=== PATIENT | male | born 1965 | race Caucasian/White ===

== ENCOUNTER 2020-11-22 12:12 | Emergency (ER) | payer BC ==
[2020-11-22] MEDS ORDERED: Ondansetron 4 MG Tab.DIS PO ONE (13:49)
[2020-11-22] MEDS ORDERED: HYDROmorphone 1 MG/ML Syringe IM ONE (13:49)
--- NOTE | 2020-11-22 14:29 | CR ---
INDICATION: Left knee pain. Swelling. FINDINGS: Three views of the left knee were obtained. There is prepatellar soft swelling. There is a joint effusion. There is no acute fracture seen or dislocation. There spurs off the patella at the insertion of the quadriceps and patellar tendons. IMPRESSION: 1. No acute bone abnormality. 2. Joint effusion. 3. Prepatellar soft tissue swelling. Dictated by Mike Castaneda MD @ 11/22/2020 2:28:[address] Mike Castaneda @ Nov 22 2020 2:28PM
--- NOTE | 2020-11-22 14:51 | EDM.PDOC ---
ED HPI GENERAL MEDICAL PROBLEM - General Chief Complaint: Lower Extremity Injury/Pain Stated Complaint: L KNEE PAIN Time Seen by Provider: 11/22/20 13:35 Source of Information: Reports: Patient History Limitations: Reports: No Limitations - History of Present Illness INITIAL COMMENTS - FREE TEXT/NARRATIVE: HISTORY AND PHYSICAL: History of present illness: The patient is a 55-year-old male who presents to the emergency room after taking a step down and stating his left leg just went out from underneath him. The patient states that he is unable to move his knee or bear weight on his left leg. He states that happened about 2.5 hours ago. He has not taken anything for the pain nor has he used ice. The patient states that he has never had an injury like this and has not had arthritis in the knee. Patient denies any fever, chills, headache, change in vision, syncope or near syncope. Denies any chest pain, back pain, shortness of breath or cough. Denies any abdominal pain, nausea, vomiting, diarrhea, constipation or dysuria. Has not noted any blood in urine or stool. Patient has been eating and drinking appropriately. Review of systems: As per history of present illness and below otherwise all systems reviewed and negative. Past medical history: As per history of present illness and as reviewed below otherwise noncontributory. Surgical history: As per history of present illness and as reviewed below otherwise noncontributory. Social history: See social history for further information Family history: As per history of present illness and as reviewed below otherwise noncontributory. Physical exam: General: Well developed and well nourished. Alert and orientated x 3. Nontoxic in appearance and in no acute distress. Vital signs are stable and have been reviewed by me. Nursing notes were reviewed. HEENT: Atraumatic, normocephalic, pupils equal and reactive bilaterally, negative for conjunctival pallor or scleral icterus, mucous membranes moist, TMs normal bilaterally, throat clear, neck supple, nontender, trachea midline. No drooling or trismus noted. No meningeal signs. No hot potato voice noted. Lungs: Clear to auscultation bilaterally. No wheezes, rales, or rhonchi. Chest nontender. Normal work of breathing, no accessory muscles used. Heart: S1S2, regular rate and rhythm without overt murmur, gallops, or rubs. No JVD. No peripheral edema Abdomen: Soft, nondistended, nontender. Normoactive bowel sounds. Negative for masses or costovertebral tenderness. Skin: Intact, warm, dry. No lesions or rashes noted. Hematologic: No petechiae or purpra. Mucosa appropriate color and normal nail bed color and refill. Extremities: Right leg moves without deficits. Left knee swelling. Tender to touch. Valgum and Valgus does not elicit pain. Pending knee elicits pain lower thigh. Neurovascular unremarkable. Neuro: Awake, alert, oriented. Cranial nerves II through XII unremarkable. Cerebellum unremarkable. Motor and sensory unremarkable throughout. Exam nonfocal. Psychiatric: Mood and affect are appropriate. Normal thought process. Answering questions appropriately. Notes: *This patient was seen and evaluated during the 2019 SARS-CoV-2 novel coronavirus pandemic period. Community viral transmission is ongoing at time of this encounter and the emergency department is operating under pandemic response procedures. As stated above the patient is here after taking a step down stating that his leg went out from underneath him. He is unsure of what position his leg took. He has some left knee swelling. It is Tender to touch. Valgum and Valgus position of the left knee does not elicit pain. Pending left knee elicits pain lower thigh. I will order an x-ray of the left knee. I will treat the patient with a shot of Dilaudid for his pain control. The patient is agreeable to this plan the patient's x-ray IMPRESSION: 1. No acute bone abnormality. 2. Joint effusion. 3. Prepatellar soft tissue swelling. I will place the patient in a knee immobilizer with instructions to follow-up with an orthopedic surgeon. The patient is from [place] and will follow up in [place] as opposed to [place] or [place]. I have talked with the patient about today's findings, in addition to providing specific details for plan of care. Reassessment at the time of disposition demonstrates that the patient is in no acute distress. The patient is stable for discharge, counseling was provided and we discussed in great detail signs and symptoms that would prompt them to return to the Emergency Department. Medication, follow up and supportive care measures were reviewed and discussed. Voices understanding and is agreeable to plan of care. Denies any further questions or concerns at this time. Diagnostics: Left knee x-ray Therapeutics:Left knee immobilizer for joint stabilization and patient comfort to wear until follow-up with orthopedic surgeon. Prescription: Tylenol 3 p.o. every 4 hours for pain, Motrin 600 mg every 8 hours for pain. Impression: Left knee pain Plan: 1. You were evaluated today on an emergent basis. Your left knee swelling and pain were evaluated with a knee x-ray which showed there is prepatellar soft swelling. There is a joint effusion. There is no acute fracture seen or dislocation. There spurs off the patella at the insertion of the quadriceps and patellar tendons. You were treated with Dilaudid and Zofran for your pain. Due to no swelling and pain we will put you in a knee immobilizer and you are to use crutches until you follow-up with an orthopedic surgeon. I would call on Tuesday for an appointment sometime next week. You can use Motrin as needed for pain. Apply ice to the area several times a day 20 minutes on 20 minutes off. I will prescribe [place] for pain control. 2. You can alternate Tylenol and ibuprofen as needed for pain and fever management. 3. We encourage you to follow up with your primary care provider and/or recommended specialist in the next few days for re-evaluation and further care/management. 4. If your symptoms should worsen, new symptoms develop or any of the signs and symptoms we discussed should arise please return to the emergency room or call 911 (if needed). Definitive disposition and diagnosis as appropriate pending reevaluation and review of above. left knee Pain Score (Numeric/FACES): 9 - Related Data Allergies Allergy/AdvReac Type Severity Reaction Status Date / Time No Known Allergies Allergy Verified 11/22/20 13:38 Home Meds: Home Meds Acetaminophen/Codeine [Tylenol with Codeine No.3 300MG/30MG] 1 tab PO Q4H PRN 4 Days #16 tab 11/22/20 [Rx] Ibuprofen [Motrin] 600 mg PO Q8H PRN 5 Days #15 tab 11/22/20 [Rx] Rosuvastatin [Crestor] 10 mg PO DAILY 11/22/20 [History] lisinopriL [Lisinopril] 40 mg PO DAILY 11/22/20 [History] Past Medical History Cardiovascular History: Reports: High Cholesterol, Hypertension - Infectious Disease History Infectious Disease History: Reports: None - Past Surgical History Musculoskeletal Surgical History: Reports: Other (See Below) Other Musculoskeletal Surgeries/Procedures:: right hip replaced Social & Family History - Family History Family Medical History: No Pertinent Family History - Caffeine Use Caffeine Use: Reports: None - Recreational Drug Use Recreational Drug Use: No Review of Systems - Review of Systems Review Of Systems: Comprehensive ROS is negative, except as noted in HPI. ED EXAM, GENERAL - Physical Exam Exam: See Below (See dictation) Course - Vital Signs Last Recorded V/S: Last Vital Signs Temp 97.8 F 11/22/20 13:36 Pulse 86 11/22/20 15:12 Resp 16 11/22/20 15:12 BP 150/81 H 11/22/20 15:12 Pulse Ox 95 11/22/20 15:12 - Orders/Labs/Meds Orders: Active Orders 24 hr Category Date Time Status DME for Discharge [COMM] Stat Oth 11/22/20 14:45 Ordered Meds: Medications Discontinued Medications Generic Name Dose Route Start Last Admin Trade Name Freq PRN Reason Stop Dose Admin Hydromorphone HCl 1 mg 11/22/20 13:49 11/22/20 14:03 Hydromorphone 1 Mg/Ml Syringe IM 11/22/20 13:50 1 mg ONETIME ONE Administration Ondansetron HCl 4 mg 11/22/20 13:49 11/22/20 14:04 Ondansetron 4 Mg Tab.Dis PO 11/22/20 13:50 4 mg ONETIME ONE Administration Departure - Departure Time of Disposition: 14:52 Disposition: Home, Self-Care 01 Condition: Good Clinical Impression: Knee pain, acute - Discharge Information *PRESCRIPTION DRUG MONITORING PROGRAM REVIEWED*: No *COPY OF PRESCRIPTION DRUG MONITORING REPORT IN PATIENT ESHA: No Prescriptions: Ibuprofen [Motrin] 600 mg PO Q8H PRN 5 Days #15 tab PRN Reason: Pain (Severe 7-10) Acetaminophen/Codeine [Tylenol with Codeine No.3 300MG/30MG] 1 tab PO Q4H PRN 4 Days #16 tab PRN Reason: Pain (Severe 7-10) Instructions: Acute Knee Pain, Adult Referrals: PCP,None [Primary Care Provider] - Forms: ED Department Discharge Additional Instructions: The following information is given to patients seen in the emergency department who are being discharged to home. This information is to outline your options for follow-up care. We provide all patients seen in our emergency department with a follow-up referral. The need for follow-up, as well as the timing and circumstances, are variable depending upon the specifics of your emergency department visit. If you don't have a primary care physician on staff, we will provide you with a referral. We always advise you to contact your personal physician following an emergency department visit to inform them of the circumstance of the visit and for follow-up with them and/or the need for any referrals to a consulting specialist. The emergency department will also refer you to a specialist when appropriate. This referral assures that you have the opportunity for follow-up care with a specialist. All of these measure are taken in an effort to provide you with optimal care, which includes your follow-up. Under all circumstances we always encourage you to contact your private physician who remains a resource for coordinating your care. When calling for follow-up care, please make the office aware that this follow-up is from your recent emergency room visit. If for any reason you are refused follow-up, please contact the [facility] Emergency Department at and asked to speak to the emergency department charge nurse. [facility] [address] [place] [address] Plan: 1. You were evaluated today on an emergent basis. Your left knee swelling and pain were evaluated with a knee x-ray which showed there is prepatellar soft swelling. There is a joint effusion. There is no acute fracture seen or dislocation. There spurs off the patella at the insertion of the quadriceps and patellar tendons. You were treated with Dilaudid and Zofran for your pain. Due to no swelling and pain we will put you in a knee immobilizer and you are to use crutches until you follow-up with an orthopedic surgeon. I would call on Tuesday for an appointment sometime next week. You can use Motrin as needed for pain. Apply ice to the area several times a day 20 minutes on 20 minutes off. I will prescribe [place] for pain control. 2. You can alternate Tylenol and ibuprofen as needed for pain and fever management. 3. We encourage you to follow up with your primary care provider and/or recommended specialist in the next few days for re-evaluation and further care/management. 4. If your symptoms should worsen, new symptoms develop or any of the signs and symptoms we discussed should arise please return to the emergency room or call 911 (if needed). Sepsis Event Note (ED) - Evaluation Sepsis Screening Result: No Definite Risk - Focused Exam Vital Signs: Vital Signs Temp Pulse Resp BP Pulse Ox 11/22/20 15:12 86 16 150/81 H 95 11/22/20 13:36 97.8 F 85 16 149/88 H 95 - My Orders Last 24 Hours: My Active Orders 11/22/20 14:45 DME for Discharge [COMM] Stat - Assessment/Plan Last 24 Hours: My Active Orders 11/22/20 14:45 DME for Discharge [COMM] Stat
== END 2020-11-22 15:16 | disposition home or self-care (01) ==
LOC: MW.ED 12:12
DX: M25.562 Pain in left knee (principal); E78.00 Pure hypercholesterolemia, unspecified; I10 Essential (primary) hypertension; Z79.899 Other long term (current) drug therapy
CPT/HCPCS: 73562; 96372; 99283; A9270; J1170